=== PATIENT | female | born 1970 | race African-American/Black ===

== ENCOUNTER 2022-03-06 12:53 | Emergency (ER) | payer OTHER, SELFPAY ==
--- NOTE | ~2022-03-06 | XR_ITS ---
XR toe 4th LT min 2V DATE: 03/06/2022 15:04 INDICATION: Pain and discoloration of fourth digit TECHNIQUE: 5 views COMPARISON: None FINDINGS: No fracture or dislocation, periosteal reaction or bone destruction, radiopaque foreign bod y or subcutaneous emphysema. Joint spaces are preserved. IMPRESSION: Negative Reviewed, dictated and finalized at location A. CTIVE SERGEANT IMPRESSION: Negative
[2022-03-06 13:39] VITALS: BP 152/80; PULSE 90; RESP 18; TEMP 36; O2SAT 100
--- NOTE | 2022-03-06 14:46 | ED.GENADULT ---
HPI - General Adult General Chief complaint: Extremity Problem,Nontraumatic Stated complaint: Left Foot Numbness Time Seen by Provider: 03/06/22 14:47 Source: patient Mode of arrival: ambulatory Limitations: no limitations History of Present Illness HPI narrative: 51-year-old female presents with complaint of discolored, painful, cold left 4th toe getting progressively worse over the last 3 weeks. Denies injury. States prior to toe symptoms started she had cramping to left calf for 2 days that has now resolved. No other symptoms today. Systems reviewed and negative except as noted above. Related Data Home Medications Medication Instructions Recorded Confirmed amlodipine 5 mg tablet 5 mg PO DAILY 03/06/22 03/06/22 losartan 100 1 tablet PO DAILY 03/06/22 03/06/22 mg-hydrochlorothiazide 25 mg tablet pantoprazole 40 mg tablet,delayed 40 mg PO DAILY 03/06/22 03/06/22 release Allergies Allergy/AdvReac Type Severity Reaction Status Date / Time No Known Allergies Allergy Verified 03/06/22 14:41 Review of Systems Review of Systems: CONSTITUTIONAL: Denies fever, chills, or sweats. EYES: Denies visual changes, redness, or discharge. ENT: Denies rhinorrhea, congestion, sore throat, or otalgia. CARDIOVASCULAR: Denies chest pain, palpitations, or edema. RESPIRATORY: Denies cough or dyspnea. GASTROINTESTINAL: Denies abdominal pain, nausea, vomiting, or diarrhea. GENITOURINARY: Denies dysuria or hematuria. SKIN: Denies rash or itching. MUSCULOSKELETAL: Denies back pain, joint pain, or myalgia. reports Discolored, tender, cold left 4th toe. NEUROLOGIC: Denies headache, numbness, or weakness. PSYCHIATRIC: Denies anxiety or depression. All other systems reviewed are negative, except as documented in HPI. PMFSH Comments At time of signature, agree with nursing past medical, surgical, social and family history. There is no relevant family history pertinent to the presenting complaint. Exam Narrative: GENERAL: This is a well-nourished, well-developed patient, in no apparent distress. HEAD: normocephalic, atraumatic. EYES: PERRL. Sclera clear/white. Vision is grossly intact. EARS: External ears normal NOSE: External nose normal NECK: Neck supple, non-tender without lymphadenopathy, masses or thyromegaly. CARDIOVASCULAR: Regular rate and rhythm without murmurs, gallops, or rubs. RESPIRATORY: Clear to auscultation. Breath sounds equal bilaterally. No wheezes, rales, or rhonchi. SKIN: warm, Dry, intact with no suspicious lesions or rash, good texture and turgor. NEURO: awake, alert, and oriented to person, place and time. There were no obvious focal neurologic abnormalities. EXTREMITIES: left 4th toe is purple in color. cool to touch when compared to the right 4th toe. His nail intact but nail bed is pale. Tender on palpation. left DP pulse 2 +. Course Course Level of Care: Express Care Visit Vital Signs Vital signs: Vital Signs Temperature 36.0 C L 03/06/22 13:39 Pulse Rate 90 03/06/22 13:39 Respiratory Rate 18 03/06/22 13:39 Blood Pressure 152/80 H 03/06/22 13:39 Pulse Oximetry 100 03/06/22 13:39 Oxygen Delivery Room Air 03/06/22 13:39 Temperature 36.0 C L 03/06/22 13:39 Pulse Rate 90 03/06/22 13:39 Respiratory Rate 18 03/06/22 13:39 Blood Pressure 152/80 H 03/06/22 13:39 Pulse Oximetry 100 03/06/22 13:39 Oxygen Delivery Room Air 03/06/22 13:39 Reviewed Transfer Transfered to: [facility] Transportation: Other ( private car with ) Transfer rationale: normal x-ray left 4th toe. Transfer to [facility] here for concern of circulation issue due to color change, temperature change left 4th toe. Accepting physician: Jony ZHONG Medical Decision Making MDM Narrative Medical decision making narrative: Patient is aware of diagnosis, understands and agrees to treatment plan. Anticipatory guidance given. Patient agrees to follow-up as directed
== END 2022-03-06 15:30 | disposition short-term general hospital (02) ==
PROVIDERS: Emergency Provider Nurse Practitioner Family; PCP Internal Medicine Infectious Disease
DX: L81.9 Disorder of pigmentation, unspecified (principal); I10 Essential (primary) hypertension
CPT/HCPCS: 73660; 99213; G0463

== ENCOUNTER 2022-03-06 15:55 | Emergency (ER) | payer OTHER, SELFPAY ==
--- NOTE | ~2022-03-06 | CT_ITS ---
EXAMINATION: CTA chest PE protocol DATE: 03/06/2022 21:52 INDICATION: Intermittent shortness of breath for 3 weeks, elevated d-dimer. Left calf pain. TECHNIQUE: Computed tomography angiography (CTA) of the chest was performed with 100 mL Omnipaque-350 intravenous contrast timed to evaluate the pulmonary arteries. Coronal maximum intensity projection 3D-reconstructions were created by the technologist. Automated exposure control and iterative reconst ruction technique were employed. Exam dose: 351.06 mGy-cm total exam DLP. COMPARISON: None. FINDINGS: There is diagnostic contrast enhancement of the pulmonary arteries and no evidence of pulmo nary embolism. No thoracic aortic aneurysm or dissection is evident. There is thoracic aortic atherosclerosis. No hilar or mediastinal mass lesion or lymphadenopathy. No pericardial or pleural effusion. No pulmonary consolidation or mass lesion is detected. Normal morphology of the adrenal glands. No suspicious osteolytic or osteoblastic lesions. IMPRESSION: No evidence of pulmonary embolism Reviewed, dictated and finalized at Location A. Reviewed, dictated and finalized at location A. 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
[2022-03-06 16:55] VITALS: BP 136/94; PULSE 82; RESP 19; TEMP 36.9; O2SAT 100
[2022-03-06 17:44] VITALS: PULSE 73; RESP 18; O2SAT 98
--- NOTE | 2022-03-06 17:48 | ED.EXTPRO ---
HPI - Extremity Problem General Chief complaint: Extremity Problem,Nontraumatic Stated complaint: discolored, cold painful toe Time Seen by Provider: 03/06/22 17:43 Source: patient and old records reviewed Mode of arrival: ambulatory Limitations: no limitations History of Present Illness HPI Narrative: Patient is a 51-year-old female who presents the ED with report of toe discoloration. Patient reports having intermittent cramping in her left lower extremity/left calf for the past 3 weeks. Denies any significant swelling of lower extremity. She is also having numbness in her left second through fourth toes. Today, she is having increased pain, blue/black discoloration, and cool temperature to her left fourth toe. She went to an urgent care and was referred here for further evaluation. Patient denies history of blood clots. No recent immobilization, surgery, long distance travel. No hormonal control use. She does report she has been intermittently short of breath over the last 3 weeks with exertion. Denies chest pain. No history of diabetes. No wounds. No known injury. Related Data Home Medications Medication Instructions Recorded Confirmed amlodipine 5 mg tablet 5 mg PO DAILY 03/06/22 03/06/22 losartan 100 1 tablet PO DAILY 03/06/22 03/06/22 mg-hydrochlorothiazide 25 mg tablet pantoprazole 40 mg tablet,delayed 40 mg PO DAILY 03/06/22 03/06/22 release Allergies Allergy/AdvReac Type Severity Reaction Status Date / Time No Known Allergies Allergy Verified 03/06/22 14:41 Review of Systems Review of Systems: CONSTITUTIONAL: Denies fever, chills, or sweats. CARDIOVASCULAR: Denies chest pain. Denies LLE edema. RESPIRATORY: Reports dyspnea. SKIN: Reports discoloration, cool temperature to left fourth toe. Denies wounds. MUSCULOSKELETAL: Reports left lower extremity/left calf pain. NEUROLOGIC: Reports numbness to left toes. All systems reviewed & are unremarkable except as noted in HPI and below PMFSH Past Medical History Medical History GERD (gastroesophageal reflux disease) HTN (hypertension) Surgical History Surgical History (Updated 03/06/22 @ 18:28 by Chelita Glasgow PA-C) No pertinent past surgical history Social History Social History (Updated 03/06/22 @ 18:29 by Chelita Glasgow PA-C) Smoking status: Current every day smoker Exam Narrative: GENERAL: Well appearing, obese, non-toxic, in no acute distress. HEAD: Normocephalic, atraumatic. NECK: Supple. No adenopathy, no masses. RESPIRATORY: Airway patent, respirations nonlabored. Clear to auscultation bilaterally, no rales, rhonchi, wheezing. CARDIOVASCULAR: Regular rate and rhythm without murmurs, rubs, or gallops. DP and PT pulses 2+ and equal bilaterally via Doppler. MUSCULOSKELETAL: Moves all extremities. Strength/ROM intact without gross deformities. No significant edema of lower extremity/calf. No calf tenderness to palpation. TTP over distal L foot, L 4th toe. L 4th toe with blue/purple/ecchymosis discoloration. L lateral distal foot/L4th toe mildly cool to touch compared to remainder of foot. Very brisk capillary refill to toes. SKIN: Warm, dry, normal color. No rashes. NEURO: A&O X3. Speech clear. Cranial nerves II-XII grossly intact. No ataxic movements. PSYCHIATRIC: Appropriate mood and affect. Normal interaction. Course Consultations Consultation #1: Discussed case with Dr. Kaplan, advised ultrasound results will be sent to patient's PCPs office. Date: 03/06/22 Vital Signs Vital signs: Vital Signs Temperature 98.4 F 03/06/22 16:55 Pulse Rate 82 03/06/22 16:55 Respiratory Rate 19 03/06/22 16:55 Blood Pressure 136/94 H 03/06/22 16:55 Pulse Oximetry 100 03/06/22 16:55 Oxygen Delivery Room Air 03/06/22 16:55 Temperature 98.6 F 03/06/22 21:43 Pulse Rate 68 03/06/22 21:43 Respiratory Rate 18 03/06/22 21:43 Blood Press
[2022-03-06 18:04] LABS: Basophils Absolute Auto 0.1 K/mm3 (0.0-0.1); Basophils Percent Auto 0.7 % (0.2-1.2); Eosinophils Absolute Auto 0.3 K/mm3 (0-0.3); Eosinophils Percent Auto 3.7 % (0-4.4); Hemoglobin 13.4 g/dL (12.0-15.0); Immature Granulocyte Absolute 0.03 K/mm3 (0.00-0.031); Immature Granulocyte Percent A 0.4 % (0-0.5); Lymphocytes Absolute Auto 3.51 K/mm3 (0.9-3.2); Lymphocytes Percent Auto 41.6 % (18.3-44.2); Mean Corpuscular HGB Conc 32.7 g/dl (32-36); Mean Corpuscular Hemoglobin 30.7 pg (26-34); Mean Platelet Volume 9.8 fl (7.4-10.4); Monocytes Absolute Auto 0.5 K/mm3 (0.1-0.6); Monocytes Percent Auto 6.4 % (2.6-8.5); Neutrophils Percent Auto 47.2 % (45.5-73.1); Platelet Count Result 322 k/mm3 (150-375); Red Blood Count 4.36 M/mm3 (4.2-5.4); Red Cell Distribution Width 13.2 % (11.5-14.5); White Blood Count 8.4 K/mm3 (4.5-10.0)
--- NOTE | 2022-03-06 18:11 | ECG_ITS ---
Measurements Intervals [place] Rate: 67 P: 27 VT: 137 QRS: 24 QRSD: 85 T: 29 QT: 417 QTc: 442 Interpretive Statements SINUS RHYTHM BASELINE ARTIFACT- III NORMAL ECG NO PREVIOUS ECG AVAILABLE FOR COMPARISON Electronically Signed On 03-06-2022 19:29:49 ORTHOTIST by Cj Curiel D.O.
[2022-03-06 18:15] LABS: INR 0.9; Partial Thromboplastin Time 25.9 SECONDS (22.3-36.8); Prothrombin Time 12.1 Seconds (11.1-14.7)
[2022-03-06 18:17] LABS: Alanine Aminotransferase 27 U/L (6-35); Albumin Level 4.6 g/dL (3.5-5.1); Alkaline Phosphatase 92 U/L (38-126); Anion Gap 11 mmol/L (8-16); Aspartate Amino Transferase 29 U/L (14-36); Bilirubin,Total 0.4 mg/dL (0.2-1.3); Blood Urea Nitrogen 16 mg/dL (7-17); Calcium 9.5 mg/dL (8.4-10.2); Carbon Dioxide 25 mmol/L (22-30); Chloride 104 mmol/L (98-107); Estimated CRCL calculation 71 ml/min; Estimated Glomerular Filt Rate > 60; Glucose 104 mg/dL (65-110); Potassium 3.8 mmol/L (3.4-5.0); Sodium 140 mmol/L (137-145)
--- NOTE | 2022-03-06 18:25 | PC.NURSE ---
called for add on labs
[2022-03-06 18:43] LABS: D Dimer 1.12 ug/mL (<0.48)
[2022-03-06 18:54] LABS: Troponin I < 0.012 ng/mL (0.000-0.034)
[2022-03-06 21:43] VITALS: BP 159/70; PULSE 68; RESP 18; TEMP 37; O2SAT 98
[2022-03-06] MEDS: ENOXAPARIN 100 MG/ML SYRINGE 90 MG SUB-Q (22:24)
== END 2022-03-06 22:20 | disposition home or self-care (01) ==
PROVIDERS: Physician Assistant; Emergency Provider Emergency Medicine; PCP Internal Medicine Infectious Disease
DX: M79.662 Pain in left lower leg (principal); L81.9 Disorder of pigmentation, unspecified; R79.89 Other specified abnormal findings of blood chemistry; I10 Essential (primary) hypertension; K21.9 Gastro-esophageal reflux disease without esophagitis; F17.200 Nicotine dependence, unspecified, uncomplicated
CPT/HCPCS: 36415; 71275; 73660; 80053; 84484; 85025; 85380; 85610; 85730; 93005; 96372; 99284; J1650; Q9967

== ENCOUNTER 2022-03-07 07:25 | Outpatient (CLI) | payer OTHER, SELFPAY ==
--- NOTE | ~2022-03-07 | US_ITS ---
EXAMINATION: US venous doppler [facility] DATE: 03/07/2022 08:22 INDICATION: Left lower limb pain and swelling. TECHNIQUE: Grayscale ultrasound images without and with compression and Doppler ultrasound images of the left lower extremity veins were obtained. COMPARISON: None. FINDINGS: The visualized portions of left common femoral vein, profunda (deep) femoral vein, femoral vein, popl iteal vein, peroneal veins, posterior tibial veins, and greater saphenous vein outflow are patent. IMPRESSION: 1. No deep venous thrombosis. Reviewed, dictated and finalized at location A. COVER SEAMSTRESS
== END 2022-03-07 07:26 | disposition home or self-care (01) ==
PROVIDERS: PCP Internal Medicine Infectious Disease; Visit Provider Internal Medicine Infectious Disease
DX: M79.89 Other specified soft tissue disorders (principal)
CPT/HCPCS: 93971

== ENCOUNTER 2023-05-15 12:28 | Emergency (ER) | payer OTHER, SELFPAY ==
[2023-05-15 12:39] VITALS: BP 167/87; PULSE 93; RESP 16; TEMP 36.3; O2SAT 100
--- NOTE | 2023-05-15 13:06 | ED.LOWEXIN ---
HPI - Extremity Injury (Lower) General Chief Complaint: Extremity Injury, Lower Stated Complaint: Left Calf Pain Time Seen by Provider: 05/15/23 12:52 Source: patient and RN notes reviewed Mode of arrival: ambulatory Limitations: no limitations History of Present Illness HPI Narrative: Patient presents today complaining of left calf pain. Two days ago she was stretching her legs at work and felt a pop in her left calf. States her pain has persisted, but is really only present when she is walking or dangling her legs. Denies numbness or tingling. Currently rates her pain 8/10 and has tried no interventions for her discomfort prior to arrival, aside from wearing compression stockings. Related Data Home Medications Medication Instructions Recorded Confirmed amlodipine 5 mg tablet 5 mg PO DAILY 03/06/22 05/15/23 losartan 100 1 tablet PO DAILY 03/06/22 05/15/23 mg-hydrochlorothiazide 25 mg tablet pantoprazole 40 mg tablet,delayed 40 mg PO DAILY 03/06/22 05/15/23 release Allergies Allergy/AdvReac Type Severity Reaction Status Date / Time cephalexin Allergy Intermediate Swelling Verified 05/15/23 12:39 of Lip/Tongue/Throat Review of Systems Review of Systems: CONSTITUTIONAL: Denies body aches, fever, chills, or sweats. EYES: Denies visual changes, redness, or discharge. ENT: Denies rhinorrhea, congestion, sore throat, or otalgia. CARDIOVASCULAR: Denies chest pain, palpitations, or edema. RESPIRATORY: Denies cough or dyspnea. GASTROINTESTINAL: Denies abdominal pain, nausea, vomiting, or diarrhea. GENITOURINARY: Denies dysuria or hematuria. SKIN: Denies rash, itching, or wounds. MUSCULOSKELETAL:+ left lower leg pain NEUROLOGIC: Denies headache, numbness, tingling, or weakness. PSYCH: Denies depression or anxiety. [facility] Past Medical History Medical History GERD (gastroesophageal reflux disease) HTN (hypertension) Surgical History Surgical History No pertinent past surgical history Social History Social History Smoking status: Current every day smoker Comments At time of signature, I have reviewed and agree with nursing past medical, surgical, social and family history unless otherwise noted. Please see nursing chart for further information. There is no relevant family history pertinent to the presenting complaint Exam Narrative: GENERAL: Well-appearing, well-nourished, and in no acute distress. HEAD: Normocephalic, atraumatic. EYES: EOMI. No redness or drainage. Conjunctivae normal. ENT: Mucous membranes pink and moist. NECK: Normal AROM. CHEST: No respiratory distress. EXTREMITIES: Left lower leg: Mild tenderness to the medial calf. No edema, ecchymosis, or erythema noted. Distal sensation intact. Capillary refill normal. Pedal pulse normal. Full range of motion of the knee and ankle against resistance. SKIN: Warm, dry, no rash. Capillary refill normal. Normal skin turgor. NEURO: No focal deficits. Alert and oriented x3. Gait steady. PSYCH: Normal affect. No signs of depression or anxiety. Course Course Level of Care: Express Care Visit Vital Signs Vital signs: Vital Signs Temperature 97.4 F L 05/15/23 12:39 Pulse Rate 93 05/15/23 12:39 Respiratory Rate 16 05/15/23 12:39 Blood Pressure 167/87 H 05/15/23 12:39 Pulse Oximetry 100 05/15/23 12:39 Oxygen Delivery Room Air 05/15/23 12:39 Temperature 97.4 F L 05/15/23 12:39 Pulse Rate 93 05/15/23 12:39 Respiratory Rate 16 05/15/23 12:39 Blood Pressure 167/87 H 05/15/23 12:39 Pulse Oximetry 100 05/15/23 12:39 Oxygen Delivery Room Air 05/15/23 12:39 Reviewed MDM - Extremity Injury (Lower) MDM Narrative Medical decision making narrative: Patient's symptoms are likely due to a muscle strain.
== END 2023-05-15 13:16 | disposition home or self-care (01) ==
PROVIDERS: Emergency Provider Nurse Practitioner; PCP Internal Medicine Infectious Disease
DX: S86.112A Strain of other muscle(s) and tendon(s) of posterior muscle group at lower leg level, left leg, initial encounter (principal); X50.0XXA Overexertion from strenuous movement or load, initial encounter; K21.9 Gastro-esophageal reflux disease without esophagitis; I10 Essential (primary) hypertension; F17.200 Nicotine dependence, unspecified, uncomplicated
CPT/HCPCS: 99212; G0463

== ENCOUNTER 2023-10-16 11:11 | Outpatient (CLI) | payer OTHER, SELFPAY ==
[2023-10-16 12:35] LABS: Cholesterol 208 mg/dL (0-200); HDL Direct 43 mg/dL; Triglycerides 274 mg/dL (<150)
[2023-10-16 12:46] LABS: LDL Cholesterol Direct 111 mg/dL
[2023-10-16 18:57] LABS: Hemoglobin A1C 5.4 % (<5.7)
== END 2023-10-16 11:12 | disposition home or self-care (01) ==
PROVIDERS: PCP Internal Medicine Infectious Disease; Visit Provider Internal Medicine Infectious Disease
DX: E78.5 Hyperlipidemia, unspecified (principal); R73.01 Impaired fasting glucose
CPT/HCPCS: 36415; 80061; 83036

== ENCOUNTER 2023-10-16 11:44 | Outpatient (CLI) | payer OTHER, SELFPAY ==
--- NOTE | ~2023-10-16 | XR_ITS ---
XR tibia fibula LT 2V Ordering provider: Floridalma BenzHumza History: . PAIN OF LEFT KNEE JOINT;PAIN IN LEFT LOWER LIMB . Comparison: None. FINDINGS: BONES: No acute fracture or dislocation. JOINT SPACES: Normal. SOFT TISSUES: Normal. IMPRESSION: No acute osseous abnormality left leg. Reviewed, dictated and finalized at location A.
--- NOTE | ~2023-10-16 | XR_ITS ---
XR knee LT min 4V Ordering provider: Floridalma BenzHumza History: . STRETCHING INJURY MONTHS AGO/PAIN PERSISTS . Comparison: None. FINDINGS: BONES: No acute fracture or dislocation. JOINT SPACES: Normal. SOFT TISSUES: Normal. IMPRESSION: No acute osseous abnormality left knee. Reviewed, dictated and finalized at location A.
== END 2023-10-16 11:45 | disposition home or self-care (01) ==
PROVIDERS: PCP Internal Medicine Infectious Disease; Visit Provider Internal Medicine Infectious Disease
DX: M79.605 Pain in left leg (principal); M25.562 Pain in left knee
CPT/HCPCS: 36415; 73564; 73590; 80061; 83036

== ENCOUNTER 2025-04-07 17:42 | Emergency (ER) | payer OTHER, SELFPAY ==
--- NOTE | ~2025-04-07 | XR_ITS ---
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 Findings: No acute fracture or malalignment. No significant degenerative changes. Soft tissues unremarkable. Impression: No acute fracture or malalignment. Reviewed, dictated and finalized at location P. DDER/GRANULATOR OPERATOR Impression: No acute fracture or malalignment.
--- NOTE | ~2025-04-07 | XR_ITS ---
EXAMINATION: XR ankle RT min 3V, 04/07/2025 17:50 INFANT CHILDCARE PROVIDER HISTORY: injury today COMPARISON: No comparisons available. Findings: No acute fracture or malalignment. No significant degenerative changes. Soft tissues unremarkable. Impression: No acute fracture or malalignment. Reviewed, dictated and finalized at location P. NT CHILDCARE PROVIDER Impression: No acute fracture or malalignment.
[2025-04-07 17:45] VITALS: BP 156/92; PULSE 96; RESP 16; TEMP 36.4; O2SAT 100
--- NOTE | 2025-04-07 18:23 | ED_ITS ---
HPI - Extremity Injury (Lower) General Chief Complaint: Extremity Injury, Lower Stated Complaint: R FOOT/ANKLE INJURY Time Seen by Provider: 04/07/25 18:00 Source: patient and RN notes reviewed Mode of arrival: ambulatory Limitations: no limitations History of Present Illness HPI Narrative: 54-year-old female Presents Express Care complaining of injury to right foot/ankle. Patient reports a chair broke earlier this morning and she fell injuring her right foot/ankle. Patient denies hitting her head, any loss of conscious, or any other injuries.. Patient denies any numbness, tingling or any other injuries. Patient denies any significant past medical history. Related Data Home Medications ?Medication ?Instructions ?Recorded ?Confirmed ?Last Taken ?Type amlodipine 5 mg tablet 5 mg PO DAILY 03/06/2204/07 Unknown History losartan 100 1 tablet PO DAILY 03/06/22 1 06/08/24 Unknown History mg-hydrochlorothiazide 25 mg tablet pantoprazole 40 mg tablet,delayed 40 mg PO DAILY 03/0604/07/25 Unknown History release Allergies Allergy/AdvReac Type Severity Reaction Status Date / Time cephalexin Allergy Intermediate Swelling Verified 04/07/25 17:50 of Lip/Tongue/Throat Review of Systems Review of Systems: CONSTITUTIONAL: Denies fever, chills, or sweats. EYES: Denies visual changes, redness, or discharge. ENT: Denies rhinorrhea, congestion, sore throat, or otalgia. CARDIOVASCULAR: Denies chest pain, palpitations, or edema. RESPIRATORY: Denies cough or dyspnea. GASTROINTESTINAL: Denies abdominal pain, nausea, vomiting, or diarrhea. GENITOURINARY: Denies dysuria or hematuria. SKIN: Denies rash, wound, or itching. MUSCULOSKELETAL: Denies back pain, joint pain, or myalgia. Positive for right foot pain and right ankle pain. NEUROLOGIC: Denies headache, numbness, or weakness. PSYCHIATRIC: Denies anxiety or depression. All other systems reviewed are negative, except as documented in HPI. [facility] Past Medical History Medical History GERD (gastroesophageal reflux disease) HTN (hypertension) Surgical History Surgical History No pertinent past surgical history Social History Social History Smoking status: Current every day smoker Comments At the time of my signature, I reviewed and agree with the nursing past medical, surgical, social, and family history. There is no relevant family history pertinent to the patient complaint. Exam Narrative: GENERAL: This is a well-nourished, well-developed adult, in no apparent distress. They are non ill-appearing, nontoxic appearing. HEAD: normocephalic, atraumatic. EYES: Sclera clear/white. Vision is grossly intact. Conjunctiva normal. Extraocular movement intact. EARS: External ears normal Hearing grossly intact. NOSE: External nose normal THROAT: Mucous membranes moist NECK: Neck supple CARDIOVASCULAR: Regular rate and rhythm RESPIRATORY: Respiratory rate normal, respiratory effort nonlabored, no respiratory distress NEURO: awake, alert, and oriented to person, place and time. There were no obvious focal neurologic abnormalities. EXTREMITIES: Right foot/ankle: No obvious deformity, injury, swelling, bruising, redness. Normal range of motion. Distal tenderness to palpation to the 2nd through 4th metatarsals. Capillary refill less than 3 seconds. Right pedal Pulse 2 +palpable. Normal sensation. Neurovascular status intact distal injury. Patient of Wen toes. Negative Nicholas's test. BACK: Nontender without deformity. Course Course Level of Care: Express Care Visit Vital Signs Vital signs: Vital Signs Temperature 97.6 F 04/07/25 17:45 Pulse Rate 96 04/07/25 17:45 Respiratory Rate 16 04/07/25 17:45 Blood Pressure 156/92 H 04/07/25 17:45 Pulse Oximetry 100 04/07/25 17:45 Oxygen Delivery Room Air 04/07/25 17:45 Temperature 97.6 F 04/07/25 17:45 Pulse Rate 96 04/07/25 17:45 Respiratory Rate 16 04/07/25 17:45 Blood Pressure 156/92 H 04/07/25 17:45 Pulse Oximetry 100 04/07/25 17:45 Oxygen Delivery Room Air 04/07/25 17:45 [facility] MDM Narrative Medical decision making narrative: X-ray right ankle and foot negative for any fractures or acute findings. Given Bill wrap for compression. Discussed rice therapy and supportive care. Discussed physical exam findings. Advised supportive measures and signs/symptoms to go to the ER. Pt is appropriate for outpt treatment and f/u. Differential Diagnosis Differential Diagnosis: Foot sprain, foot contusion, foot fracture, ankle sprain, ankle fracture Imaging Data Radiologist's impression: ITS Impressions Ankle X-Ray 04/07/25 18:04 Impression: No acute fracture or malalignment. Foot X-Ray 04/07/25 18:04 Impression: No acute fracture or malalignment. Critical Care Time Critical Care Time Critical Care Time: No Discharge Plan Discharge Clinical Impression: Injury of right ankle and foot Qualifiers: Encounter type: initial encounter Qualified Code(s): S99.911A - Unspecified injury of right ankle, initial encounter Fall Qualifiers: Encounter type: initial encounter Qualified Code(s): W19.XXXA - Unspecified fall, initial encounter Patient Disposition: Home Condition: Stable Instructions: Ankle Sprain (ED), Foot Sprain (ED) Additional Instructions: The x-ray right foot and x-ray were negative for any fractures or acute findings. Rest and elevate the leg; bear weight as tolerated Apply ice 15-20 minute intervals several times a day with the 1st 48 hours and switch to heat. Keep it wrapped with BILL or use a soft ankle splint You may take ibuprofen 600 mg to 800 mg every 6-8 hours. Do not exceed more than 800 mg of ibuprofen per dose. Do not exceed more than 3200 mg ibuprofen in a day. You may take up to 1000 mg Tylenol every 6-8 hours. Do not exceed 1000 mg per dose, do exceed more than 4000 mg of Tylenol in a day. Follow up with your primary care provider as needed in 1-2 weeks especially pain is persisting for 10 days. Patient Language: Faroese Prescriptions: No Action amlodipine 5 mg tablet 5 mg PO DAILY losartan-hydrochlorothiazide 100-25 mg tablet 1 tablet PO DAILY pantoprazole 40 mg tablet,delayed release (DR/EC) 40 mg PO DAILY Follow-up/Referrals: Tuyet,Humza Hedrick [Primary Care Provider] Time of Disposition: 18:19
== END 2025-04-07 18:24 | disposition home or self-care (01) ==
PROVIDERS: PCP Internal Medicine Infectious Disease
DX: S99.921A Unspecified injury of right foot, initial encounter (principal); S99.911A Unspecified injury of right ankle, initial encounter; W17.89XA Other fall from one level to another, initial encounter; I10 Essential (primary) hypertension; K21.9 Gastro-esophageal reflux disease without esophagitis
CPT/HCPCS: 73610; 73630; 99213; G0463